=== PATIENT | male | born 1970 | race Caucasian/White ===

== ENCOUNTER 2016-12-29 04:25 | Emergency (ER) | payer SELFPAY ==
[2016-12-29] MEDS ORDERED: Lidocaine 2% w/Epinephrine 1:200K 20 ML VIAL ONE (04:38)
== END 2016-12-29 04:56 | disposition left against medical advice (07) ==
LOC: MADERS 04:25
DX: S71.112A Laceration without foreign body, left thigh, initial encounter (principal); F17.210 Nicotine dependence, cigarettes, uncomplicated; W26.0XXA Contact with knife, initial encounter
CPT/HCPCS: 99282

== ENCOUNTER 2020-09-20 21:15 | Emergency (ER) | payer SELFPAY | END 2020-09-20 21:53 | disposition home or self-care (01) | LOC: MADERS 21:15 | DX: S91.132A Puncture wound without foreign body of left great toe without damage to nail, initial encounter (principal); Z71.6 Tobacco abuse counseling; K40.90 Unilateral inguinal hernia, without obstruction or gangrene, not specified as recurrent; F17.210 Nicotine dependence, cigarettes, uncomplicated; W26.9XXA Contact with unspecified sharp object(s), initial encounter | CPT/HCPCS: 99406 ==

== ENCOUNTER 2020-10-02 16:42 | Emergency (ER) | payer SELFPAY | END 2020-10-02 18:19 | disposition home or self-care (01) | LOC: MADERS 16:42 | DX: K40.90 Unilateral inguinal hernia, without obstruction or gangrene, not specified as recurrent (principal); F17.210 Nicotine dependence, cigarettes, uncomplicated; R16.1 Splenomegaly, not elsewhere classified | CPT/HCPCS: 99283 ==

== ENCOUNTER 2021-06-07 20:54 | Emergency (ER) | payer SELFPAY | END 2021-06-07 21:30 | disposition left against medical advice (07) | LOC: MADERS 20:54 | DX: Z53.21 Procedure and treatment not carried out due to patient leaving prior to being seen by health care provider (principal) ==